=== PATIENT | female | born 1945 | race Caucasian/White ===

== ENCOUNTER 2024-08-18 14:14 | Outpatient (REF) | payer MEDICARE, SELFPAY ==
--- OUTSIDE RECORDS SUMMARY | 2024-08-18 14:21 | XMS_ITS | Continuity of Care Document ---
Author Organization [place] - [facility], [facility] Address [address] [place] [phone] Care Team Providers Care Field Operations Manager Name Role Phone DIANA REBOLLEDO Primary Care Provider Assessment Encounter Date Assessment Date Assessment LastModified by Organization Details LastModified Time 07/03/2024 07/03/2024 79-year-old female presents today for evaluation of chronic rhinitis. She has been using azelastine. I was previously hesitant to recommend fluticasone due to the nasal mucositis but this does not appear to be evident today. I did recommend adding in fluticasone, taking care to watch for any dryness or irritation in the nasal cavity. I also removed her cerumen. [email or web address] Not available 07/06/2024 05:58:12 Plan of Treatment Reminders Order Date Submit Date Provider Last Modified By Organization Details Last Modified Time Details Appointments None recorded. Lab None recorded. Referral None recorded. Procedures None recorded. Surgeries None recorded. Imaging None recorded. Medication Orders fluticasone propionate 50 mcg/actuati on nasal spray,suspe nsion 2023 024 [facility]/Pharmacy #[id number], [address] [facility], [place], [address], 10:50:35 Patient TargetsNo targets recorded. Patient InstructionsNo instructions recorded. Reason for Referral None Reported. Problems Name Problem SNOMED Code Status Onset Date Resolution Date Notes Provider Name and Address Organization Details Recorded Time Posterior rhinorrhe a 40360383 Active 2018 Postnasal drip; Note: Date Diagnosed : 03/04/2019 2:38 PM (R09.82) Not Available [facility] 4 03:19:55 Bilateral tinnitus 62855503147 02 Active 2022 Tinnitus, bilateral ; Note: Date Diagnosed : 11/26/2022 9:39 AM (H93.13) Not Available [facility] 4 03:19:56 Sensorine ural hearing loss of bilateral ears 517342509 Active 2014 Sensorine ural HL, bilateral ; Note: Date Diagnosed : 4 10:31 AM (389.18) ; Start Date : 4 Sensori neural hearing loss, bilateral ; Note: Date Diagnosed : 08/09/2015 9:52 AM (H90.3) Not Available [facility] 4 03:19:55 Chronic rhinitis 70782529 Active 2014 Rhinitis, chronic; CMS Risk: low risk [facility] Treatment : new problem (to examiner) : no additiona l workup planned N ote: Date Diagnosed : 4 10:25 AM (472.0) ; Start Date : 4 Chronic rhinitis; Note: Date Diagnosed : 08/09/2015 9:52 AM (J31.0) Not Available [facility] 4 03:19:56 Allergic rhinitis 60152843 Active 2019 Allergic rhinitis, unspecifi ed; Note: Date Diagnosed : 06/02/2020 11:55 AM (J30.9) Not Available [facility] 4 03:19:56 Impacted cerumen of bilateral ears 58598435297 75380 Active 2023 JJ ANDRES MD [address] [place] [address], [facility] [place], [phone] , [facility] - [facility] 4 05:58:22 Problem Notes None recorded. Medical Equipment None Reported. Allergies Allergen ID Allergen Name Allergen Category Reaction Reaction Severity Criticality Documentation Date Start Date Code Code System Note Provider Name and Address Organization Details Recorded Time 982782 levofloxa layo medicatio n other Not available Not available 01/14/2024 20410 RxNorm React ion: unkno wn, unspe cifie d;; Not Available [facility] 4 01:23:29 342920 azithromy layo medicatio n other Not available Not available 01/14/2024 64507 RxNorm React ion: unkno wn, unspe cifie d;; Not Available [facility] 4 01:23:29 Medications Name Sig Start Date Stop Date Status Note LastModified by Organization Details LastModified Time losartan 50 mg tablet TAKE 1 TABLET BY MOUTH EVERY DAY FOR 90 DAYS 07/03 completed Not Available Not Available Not Available desonide 0.05 % topical cream APPLY TO ITCHY AREA ON FACE TWICE DAILY NEEDED 07/03 completed Not Available Not Available Not Available metformin 500 mg tablet TAKE 2 TABLETS BY MOUTH TWICE A DAY FOR 90 DAYS 07/03 completed Not Available Not Available Not Available glyburide micronize d 6 mg tablet 07/03 completed Medicati on ID: [id number] Du ration Value: 90 Brand Name: glyburid e microniz ed Send Method: E-Prescr ibed Sub s Allowed: subs OK Medic ationGen ericName : glyburid e microniz ed Not Available Not Available Not Available atorvasta tin 20 mg tablet TAKE 1 TABLET BY MOUTH EVERY DAY active Not Available Not Available No t Available ketoconaz ole 2 % shampoo APPLY TO SCALP TWICE A WEEK, LEAVE ON FOR 5 MIN, THEN RINSE active Not Available Not Available No t Available alendrona te 70 mg tablet active Not Available Not Available Not Available Zyrtec 10 mg tablet Take 1 tablet every day by oral route. 2023 active Not Available Not Available Not Lacho garcia Aspir-Low 81 mg tablet,de layed release 07/03 completed Medicati on ID: [id number] Br and Name: Aspir-Lo w Send Method: E-Prescr ibed Sub s Allowed: subs OK Medic ationGen ericName : Aspir-Lo w Not Available Not Available Not Available amlodipin e 5 mg tablet TAKE 1 TABLET BY MOUTH EVERY DAY active Not Available Not Available No t Available amlodipin e 10 mg tablet TAKE 1 TABLET BY MOUTH EVERY DAY FOR 90 DAYS active Not Available Not Available No t Available pantopraz ole 40 mg tablet,de layed release TAKE 1 TABLET BY MOUTH EVERY DAY active Not Available Not Available No t Available losartan 25 mg tablet TAKE 1 TABLET BY MOUTH EVERY DAY FOR 30 DAYS 07/03 completed Not Available Not Available Not Available lisinopri l 5 mg tablet 07/03 completed Medicati on ID: [id number] Du ration Value: 90 Brand Name: lisinopr il Send Method: E-Prescr ibed Sub s Allowed: subs OK Medic ationGen ericName : lisinopr il Not Available Not Available Not Available mupirocin 2 % topical ointment Apply 1 a small amount three times a day 07/03 completed Medicati on ID: [id number] D uration Value: 14 Prescri bed By Name: Jj palacios MD Brand Name: mupiroci n Send Method: E-Prescr ibed Sub s Allowed: subs OK Medic ationGen ericName : mupiroci n Not Available Not Available Not Available metoprolo l succinate ER 25 mg tablet,ex tended release 24 hr TAKE 1 TABLET BY MOUTH EVERY DAY FOR 90 DAYS 07/03 completed Not Available Not Available Not Available azelastin e 137 mcg (0.1 %) nasal spray 2 spray into both nostrils 07/03 completed Medicati on ID: [id number] D uration Value: 30 Prescri bed By Name: ADRIAN Pavon nd Name: azelasti ne Send Method: E-Prescr ibed Sub s Allowed: subs OK Medic ationGen ericName : azelasti ne Not Available Not Available Not Available albuterol sulfate HFA 90 mcg/actua tion aerosol inhaler 2 puff 07/03 completed Medicati on ID: [id number] Du ration Value: 30 Brand Name: albutero l sulfate Send Method: E-Prescr ibed Sub s Allowed: subs OK Medic ationGen ericName : albutero l sulfate Not Available Not Available Not Available fluticaso ne propionat e 50 mcg/actua tion nasal spray,derrell pension 1-2 puff into both nostrils daily active Not Available Not Available No t Available metformin ER 500 mg tablet,ex tended release 24 hr TAKE 3 TABLETS (1,500 MG TOTAL) BY MOUTH DAILY active Not Available Not Available No t Available ipratropi um bromide 21 mcg (0.03 %) nasal spray USE 2 SPRAYS INTO EACH NOSTRIL 3 TIMES A DAY 07/03 completed Not Available Not Available Not Available glipizide 5 mg tablet TAKE 2 TABLETS BY MOUTH ONCE EVERY DAY FOR 90 DAYS active Not Available Not Available No t Available magnesium 200 mg tablet 2013 active Medicati on ID: [id number] Br and Name: nancy pastrana Send Method: E-Prescr ibed Sub s Allowed: subs OK Medic ationGen ericName : nancy pastrana Not Available Not Available Not Available Calcium 500 mg + D (D3) 3.125 mcg (125 unit) tablet 07/03 completed Medicati on ID: [id number] Br and Name: Calcium 500 + D (D3) Sen d Method: E-Prescr ibed Sub s Allowed: subs OK Medic ationGen ericName : Calcium 500 + D (D3) Not Available Not Available Not Available GaviLyte- G 236 gram-22.7 4 gram-6.74 gram-5.86 gram oral solution USE INSTRUCT ED BY PHYSICIA NS OFFICE FOR COLONOSC OPY 07/03 completed Not Available Not Available Not Available vitamin B12 500 mcg-folic acid 400 mcg tablet 2013 active Medicati on ID: [id number] Br and Name: vitamin D57-itkh c acid Sen d Method: E-Prescr ibed Sub s Allowed: subs OK Medic ationGen ericName : vitamin U26-cwvj c acid Not Available Not Available Not Available Lokelma 10 gram oral powder packet TAKE 1 PACKET BY MOUTH 3 TIMES A WEEK 07/03 completed Not Available Not Available Not Available Ozempic 0.25 mg or 0.5 mg (2 mg/3 mL) subcutane ous pen injector DIRECTED SUBCUTAN EOUS 0.25 ONCE WEEKLY E11.9 28 DAYS 07/03 completed Not Available Not Available Not Available Vitals Date Recorded Body height Body mass index (BMI) Body weight Provider Name and Address Organization Details Last Updated DateTime 07/03/2024 168.91 cm 25.9 kg/m2 10641.56 g Katerine Olivarez [place] - [facility] 07/03/2024 10:33:27 Social History None recorded. Functional Status None recorded. Mental Status None recorded. Family History Nothing Reported Notes:Cancer: Unspecified ty pe of cancer - father and mother. Endocrine: Diabetes, age at onset unspecified - mother and brother(s) Medical History No medical history recorded. Gynecological HistoryNo gynecological history recorded. Obstetrics History GPAL:G 0 P 0 0 0 0 Past Encounters Encounter ID Performer Location Encounter Start Date Encounter Closed Date Diagnosis/Indication Diagnosis SNOMED-CT Code Diagnosis ICD10 Code [id number] JJ ANDRES MD [facility] [address] [address] 07/03/2024 10:27:12 07/03/2024 10:51:50 Chronic rhinitis 38591954 J31.0 Impacted c erumen of bilateral ears 7131619886 098530 H61.23 Health Concerns Section Related Observation LastModified by Organization Detai ls LastModified Time None Recorded Concern Status LastModified by Organization Details LastModified Time None Recorded Payers Encounter Date Sequence Insurance Name Policy Number Policy Messer Covered Member ID Messer Member ID Guarantor Name 07/03/2024 1 [place] [employer] Whit Aguilera [id number] 1 Whit Aguilera 07/03/2024 2 BCBS-ID:[employer]ACK G[employer]PAR [facility] PLAN F (MEDICARE SUPPLEMENT) [id number] Whit Nikki Willy [id number] Whit Aguilera Notes Date Note Type Note Provider Name and Address Organization Details Recorded Time 07/03/2024 text/html 79 yo F here for allergies. Notes congestion, post nasal drip. Has been taking claritin. Using nasal spray, azelastine. No changes in health. Endoscopy last year looked ok. Blood sugars a little high at times. PV: 77-year-old female presents today for follow-up of a few concerns. Her nose has been bothersome. She hasbeen using mupirocin and azelastine. She does have a history of allergies and asthma. She also has a history of hiatal hernia.She is also been having more difficulty with hearing in social situations. JJ ANDRES MD [address] [place] [address], [phone], [facility] - [facility] 07/06/2024 05:58:41 OBGyn Episode No OBEpisode recorded.
--- OUTSIDE RECORDS SUMMARY | 2024-08-18 14:21 | XMS_ITS | Data Portability ---
Author Organization [place] - [facility], Allergy Address [address] [address] Care Team Providers Care Radio Mechanic Apprentice Name Role Phone DIANA REBOLLEDO Primary Care [...] mcg/actuati on nasal spray,suspe nsion 2023 024 [facility]/Pharmacy #[id number], [address] [facility] [place], [address], 10:50:35 Patient TargetsNo targets recorded. Patient InstructionsNo instructions recorded. Reason for Referral None Reported. Problems Name Problem SNOMED Code Status Onset Date Resolution Date Notes Provider Name and Address Organization Details Recorded Time Posterior rhinorrhe a 46818545 Active 2018 Postnasal drip; Note: Date Diagnosed : 03/04/2019 2:38 PM (R09.82) Not Available [facility] 4 03:19:55 Bilateral tinnitus 10716989484 02 Active 2022 Tinnitus, bilateral ; Note: Date Diagnosed : 11/26/2022 9:39 AM (H93.13) Not Available [facility] 4 03:19:56 Sensorine ural hearing loss of bilateral ears 110882891 Active 2014 Sensorine ural HL, bilateral ; Note: Date Diagnosed : 4 10:31 AM (389.18) ; Start Date : 4 Sensori neural hearing loss, bilateral ; Note: Date Diagnosed : 08/09/2015 9:52 AM (H90.3) Not Available [facility] 4 03:19:55 Chronic rhinitis 50111320 Active 2014 Rhinitis, chronic; CMS Risk: low risk [facility] Treatment : new problem (to examiner) : no additiona l workup planned N ote: Date Diagnosed : 4 10:25 AM (472.0) ; Start Date : 4 Chronic rhinitis; Note: Date Diagnosed : 08/09/2015 9:52 AM (J31.0) Not Available [facility] 4 03:19:56 Allergic rhinitis 90568411 Active 2019 Allergic rhinitis, unspecifi ed; Note: Date Diagnosed : 06/02/2020 11:55 AM (J30.9) Not Available [facility] 4 03:19:56 Impacted cerumen of bilateral ears 67086878150 81458 Active 2023 JJ ANDRES MD [address] [place] [address], [place], [address] , [facility] - [facility] 4 05:58:22 Problem Notes None recorded. Medical Equipment None Reported. Allergies Allergen ID Allergen Name Allergen Category Reaction Reaction Severity Criticality Documentation Date Start Date Code Code System Note Provider Name and Address Organization Details Recorded Time 013347 levofloxa layo medicatio n other Not available Not available 01/14/2024 31331 RxNorm React ion: unkno wn, unspe cifie d;; Not Available [facility] 4 01:23:29 968213 azithromy layo medicatio n other Not available Not available 01/14/2024 49704 RxNorm React ion: unkno wn, unspe cifie d;; Not Available [facility] 01:23:29 Medications Name Sig Start Date Stop [...] mg tablet 07/03 completed Medicati on ID: [id number] Du ration Value: 90 Brand Name: glyburid [...] 2023 active Not Available Not Available Not Braulioai jose Aspir-Low 81 mg tablet,de layed release 07/03 completed Medicati on ID: [id number] Br and Name: Aspir-Lo w Send Method: [...] mg tablet 07/03 completed Medicati on ID: [id number] Du ration Value: 90 Brand Name: lisinopr il Send Method: E-Prescr ibed Sub s Allowed: subs OK Medic ationGen ericName : lisinopr il Not Available Not Available Not Available mupirocin 2 % topical ointment Apply 1 a small amount three times a day 07/03 completed Medicati on ID: [id number] D uration Value: 14 Prescri bed By [...] both nostrils 07/03 completed Medicati on ID: [id number] D uration Value: 30 Prescri bed By Name: ADRIAN Pavon nd Name: azelasti ne Send Method: E-Prescr ibed Sub s Allowed: subs OK Medic ationGen ericName : azelasti ne Not Available Not Available Not Available albuterol sulfate HFA 90 mcg/actua tion aerosol inhaler 2 puff 07/03 completed Medicati on ID: [id number] Du ration Value: 30 Brand Name: albutero [...] mg tablet 2013 active Medicati on ID: [id number] Br and Name: nancy pastrana Send Method: E-Prescr ibed Sub s Allowed: subs OK Medic ationGen ericName : nancy pastrana Not Available Not Available Not Available Calcium 500 mg + D (D3) 3.125 mcg (125 unit) tablet 07/03 completed Medicati on ID: [id number] Br and Name: Calcium 500 + D [...] mcg tablet 2013 active Medicati on ID: [id number] Br and Name: vitamin S30-rdxk c acid Sen d Method: E-Prescr ibed Sub s Allowed: subs OK Medic ationGen ericName : vitamin K01-mczg c acid Not Available Not Available Not [...] Updated DateTime 07/03/2024 168.91 cm 25.9 kg/m2 66074.56 g Katerine Olivarez [place] - [facility] 07/03/2024 10:33:27 Social History None recorded. [...] Diagnosis/Indication Diagnosis SNOMED-CT Code Diagnosis ICD10 Code [id number] JJ ANDRES MD [facility] [address] [address] 07/03/2024 10:27:12 07/03/2024 10:51:50 Chronic rhinitis 89840590 J31.0 Impacted c erumen of bilateral ears 6685459734 998708 H61.23 Health Concerns Section Related Observation LastModified by Organization Detai ls LastModified Time None Recorded Concern Status LastModified by Organization Details LastModified Time None Recorded Advance Directives Directive None Recorded Payers Encounter Date Sequence Insurance Name Policy Number Policy Messer Covered Member ID Messer Member ID Guarantor Name 07/03/2024 1 [place]ICARE [place]: [employer] Whit Aguilera [id number] 1 Whit Aguilera 07/03/2024 2 BCBS-ID:ZACK GASPAR [facility] PLAN F (MEDICARE SUPPLEMENT) [id number] Whit Nikki Willy [id number] Whit Aguilera Notes Date Note Type [...] hearing in social situations. JJ ANDRES MD [address] [place] [address], [phone], [facility] - [facility] 07/06/2024 05:58:41 OBGyn Episode No OBEpisode recorded.
[2024-08-18 15:28] LABS: Estimated Average Glucose 151 mg/dL; Hemoglobin A1C 128.3811 umol/L; Hemoglobin A1c % 6.9 % (<6.0); Total Hemoglobin (HGBA1C) 2497.4631 umol/L
[2024-08-18 15:37] LABS: Erythrocyte Sedimentation Rate 30 MM/HR (0-20)
[2024-08-18 15:58] LABS: Vitamin B12 434 pg/mL (200-900)
[2024-08-19 19:48] LABS: Lyme Abs Screen <0.90 index
[2024-08-23 18:19] LABS: IgA 211 mg/dL (70-320); IgG 774 mg/dL (600-1540); IgM 57 mg/dL (50-300)
== END 2024-08-18 14:15 | disposition home or self-care (01) ==
LOC: HO.LAB 14:14
PROVIDERS: PCP Internal Medicine; Visit Provider Psychiatry & Neurology Neurology
DX: G62.9 Polyneuropathy, unspecified (principal); Z13.1 Encounter for screening for diabetes mellitus
CPT/HCPCS: 36415; 82607; 82784; 83036; 85652; 86334; 86617; 86618